=== PATIENT | male | born 2000 | race African-American/Black ===

== ENCOUNTER 2020-12-19 23:00 | Emergency (ER) | payer OTHER, SELFPAY ==
--- NOTE | ~2020-12-19 | XR_ITS ---
EXAMINATION: XR chest 2V DATE: 12/19/2020 23:37 INDICATION: Midsternal chest pain TECHNIQUE: PA and lateral views of the chest were obtained. COMPARISON: None FINDINGS: The lungs are clear with no focal airspace opacities, pulmonary edema, pleural effusion or pneumothor ax. The cardiomediastinal silhouette is normal. Visualized bones and soft tissues are unremarkable. IMPRESSION: 1. Normal chest radiograph. Reviewed, dictated and finalized at location A. IMPRESSION: 1. Normal chest radiograph.
[2020-12-19 22:57] VITALS: BP 131/96; PULSE 149; RESP 21; O2SAT 98
--- NOTE | 2020-12-19 23:05 | ECG_ITS ---
Measurements Intervals [place] Rate: 153 P: [place]: 0 QRS: 56 QRSD: 94 T: -26 QT: 280 QTc: 447 Interpretive Statements ATRIAL FIBRILLATION WITH RAPID VENTRICULAR RESPONSE ST ELEVATION IN ANT/HIGH LAT LEADS- CONSIDER PERICARDITIS, INJURY OR EARLY REPOLARIZATION ABNORMALITY ABNORMAL ECG Electronically Signed On 12-20-2020 6:19:55 CDT by Darek Gutierrez D.O.
[2020-12-19] MEDS: dilTIAZem HCl INJ 25 MG/5 ML VIAL 15 MG IV PUSH (23:15)
[2020-12-19 23:18] LABS: Basophils Percent Auto 0.5 % (0.2-1.2); Eosinophils Absolute Auto 0.1 K/mm3 (0-0.3); Eosinophils Percent Auto 1.6 % (0-4.4); Hematocrit 41.1 % (42.0-52.0); Hemoglobin 13.8 g/dL (14.0-18.0); Immature Granulocyte Absolute 0.04 K/mm3 (0.00-0.031); Immature Granulocyte Percent A 0.5 % (0-0.5); Lymphocytes Absolute Auto 3.39 K/mm3 (0.9-3.2); Lymphocytes Percent Auto 39.4 % (18.3-44.2); Mean Corpuscular HGB Conc 33.6 g/dl (32-36); Mean Corpuscular Hemoglobin 29.6 pg (26-34); Monocytes Absolute Auto 0.7 K/mm3 (0.1-0.6); Monocytes Percent Auto 7.5 % (2.6-8.5); Neutrophils Absolute Auto 4.4 K/mm3 (1.3-6.7); Neutrophils Percent Auto 50.5 % (45.5-73.1); Platelet Count Result 361 k/mm3 (150-375); Red Blood Count 4.67 M/mm3 (4.6-6.20); Red Cell Distribution Width 12.6 % (11.5-14.5); White Blood Count 8.6 K/mm3 (4.5-10.0)
[2020-12-19 23:28] LABS: Anion Gap 10 mmol/L (8-16); Blood Urea Nitrogen 14 mg/dL (9-20); Calcium 9.7 mg/dL (8.4-10.2); Carbon Dioxide 27 mmol/L (22-30); Chloride 102 mmol/L (98-107); Estimated Glomerular Filt Rate > 60; Glucose 154 mg/dL (65-110); Potassium 3.7 mmol/L (3.4-5.0); Sodium 139 mmol/L (137-145)
[2020-12-19 23:36] LABS: INR 0.9; Prothrombin Time 12.1 Seconds (11.1-14.7)
[2020-12-19 23:37] LABS: Partial Thromboplastin Time 26.4 SECONDS (22.3-36.8)
[2020-12-19 23:40] LABS: Troponin I < 0.012 ng/mL (0.000-0.034)
[2020-12-19 23:41] VITALS: BP 124/90; PULSE 135; RESP 16; O2SAT 98
[2020-12-19] MEDS: dilTIAZem HCl INJ 25 MG/5 ML VIAL 10 MG IV PUSH (23:41)
[2020-12-19 23:47] LABS: Amphetamine Screen Urine Negative (Negative); Barbiturate Screen Urine Negative (Negative); Benzodiazepines Screen Urine Negative (Negative); Cannabinoid Screen Urine Negative (Negative); Cocaine Screen Urine Negative (Negative); Methadone Screen Urine Negative (Negative); Opiate Screen Urine Negative (Negative); Phencyclidine Screen Urine Negative (Negative)
[2020-12-19 23:50] VITALS: BP 103/84; PULSE 93; RESP 15; O2SAT 99
--- NOTE | 2020-12-19 23:52 | ECG_ITS ---
Measurements Intervals [place] Rate: 91 P: 36 [place]: 150 QRS: 34 QRSD: 106 T: 5 QT: 333 QTc: 412 Interpretive Statements SINUS RHYTHM ST ELEVATION IN ANTEROLAT/HIGH LAT LEADS CONSISTENT WITH INJURY, PERICARDITIS, OR EARLY REPOLARIZATION ABNORMAL ECG Electronically Signed On 12-20-2020 6:17:59 CDT by Darek Gutierrez D.O.
[2020-12-20 00:43] VITALS: BP 125/80; PULSE 91; RESP 15; O2SAT 99
--- NOTE | 2020-12-20 00:45 | PC.NURSE ---
Pt states he feels much better, but reports he is very tired. Denies SOB or dizziness. Rates CP 04/07 at this time. Pt resting on stretcher, family at bedside.
--- NOTE | 2020-12-20 01:06 | ED.ARRPALP ---
HPI - Arrhythmia/Palpitations General Chief Complaint: Arrhythmia/Palpitations Stated Complaint: abn. heart rate - appears to be afib rvr Time Seen by Provider: 12/19/20 23:05 History of Present Illness HPI narrative: Patient is a 20-year-old male who presents to the ER with rapid heart rate. Patient was at work when he felt tightness in his chest. He used his inhaler which did not help. No history of arrhythmia. Noted to be in A. fib with RVR by EMS. Patient reports some persistent tightness. No shortness of breath. No lightheadedness or dizziness. Has not had symptoms like this previously. No recent long distance travel or hospitalization. No surgeries. No lower extremity swelling. No hemoptysis or cough. Related Data Home Medications Medication Instructions Recorded Confirmed No Home Medications 12/19/20 12/19/20 Allergies Allergy/AdvReac Type Severity Reaction Status Date / Time No Known Allergies Allergy Verified 12/19/20 23:07 Review of Systems Review of Systems: All systems reviewed & are unremarkable except as noted in HPI and below Constitutional: Constitutional: Denies chills, Denies fever(s) and Denies weakness ENT: Denies nasal congestion and Denies sore throat Cardiovascular: Cardiovascular: Reports chest pain, Reports rapid heart rate and Denies radiating jaw, neck or arm pain Respiratory: Respiratory: Denies cough, Denies dyspnea and Denies wheezing Gastrointestinal: Gastrointestinal: Denies abdominal pain, Denies nausea and Denies vomiting Musculoskeletal: Musculoskeletal: Denies back pain and Denies muscle cramps PMFSH Past Medical History Medical History (Updated 12/20/20 @ 01:17 by Yovanny Silver MD) Asthma Surgical History Surgical History (Updated 12/20/20 @ 01:17 by Yovanny Silver MD) No pertinent past surgical history Social History Social History (Updated 12/20/20 @ 01:17 by Yovanny Silver MD) Smoking status: Never smoker Alcohol intake: never Substance use: never Exam Narrative: GENERAL: Well-appearing, well-nourished, and in no acute distress. HEAD: Normocephalic, atraumatic. EYES: PERRL and EOMI. CHEST: Clear to auscultation. No respiratory distress. HEART: Tachycardic and irregular regular. Normal peripheral pulses. ABDOMEN: Soft, nontender, nondistended. EXTREMITIES: Normal range of motion. No edema. SKIN: Warm, dry, no rash. NEURO: Alert and oriented x3. PSYCH: Normal mood and affect. Course Course Emergency Course: Patient central chest discomfort totally resolved after rate control achieved. Patient has been having no chest discomfort or shortness of breath prior to this episode this evening. He does report 2 weeks ago having a respiratory infection where he had sinus congestion and productive cough. It has since gone away. He was not tested for Covid but is fully immunized. I discussed the case with cardiology on-call. It is recommended patient be started on metoprolol 25 mg twice a day and also take a full dose of aspirin. EKG abnormalities discussed. OK for d/c. Vital Signs Vital signs: Vital Signs Pulse Rate 149 H 12/19/20 22:57 Respiratory Rate 21 H 12/19/20 22:57 Blood Pressure 131/96 H 12/19/20 22:57 Pulse Oximetry 98 12/19/20 22:57 Pulse Rate 91 12/20/20 00:43 Respiratory Rate 15 12/20/20 00:43 Blood Pressure 125/80 12/20/20 00:43 Pulse Oximetry 99 12/20/20 00:43 MDM - Arrhythmia/Palpitations Lab Data Result diagrams: 12/19/20 23:13 12/19/20 23:13 Labs: Lab Results 12/19/20 12/19/20 12/19/20 Range/Units 23:13 23:13 23:13 WBC 8.6 (4.5-10.0) K/mm3 RBC 4.67 (4.6-6.20) M/mm3 Hgb 13.8 L (14.0-18.0) g/dL Hct 41.1 L (42.0-52.0) % MCV 88.0 (80-100) fl MCH 29.6 (26-34) pg MCHC 33.6 (32-36) g/dl RDW 12.6 (11.5-14.5) % Plt Count 361 (150-375) k/mm3 MPV 9.0 (7.4-10.4) fl Immature Gran % (Auto) 0.5
[2020-12-20 01:23] VITALS: PULSE 90
[2020-12-20] MEDS: METOPROLOL TARTRATE 25 MG TABLET PO (01:23)
[2020-12-20] MEDS: ASPIRIN 325 MG TABLET PO (01:24)
[2020-12-20 01:40] VITALS: BP 129/89; PULSE 88; RESP 16; O2SAT 100
== END 2020-12-20 01:42 | disposition home or self-care (01) ==
PROVIDERS: Emergency Provider Emergency Medicine
DX: I48.91 Unspecified atrial fibrillation (principal); J45.909 Unspecified asthma, uncomplicated; R94.31 Abnormal electrocardiogram [ECG] [EKG]
CPT/HCPCS: 36415; 71046; 80048; 80307; 84443; 84484; 85025; 85610; 85730; 93005; 96374; 99284; A9270